=== PATIENT | female | born 1995 | race Hispanic/Latino ===

== ENCOUNTER 2018-07-24 13:22 | Observation (INO) | payer MEDICAID ==
[~2018-07-24] VITALS: Ht 152.4 cm; Wt 78.9 kg
[2018-07-24 14:28] LABS: APPEARANCE,URINE SL CLOUDY (CLEAR); BILIRUBIN,URINE SMALL (NEGATIVE); COLOR,URINE YELLOW (YELLOW); GLUCOSE, URINE (UA) NEGATIVE (NEGATIVE); KETONES,URINE >=80 mg/dL (NEGATIVE); LEUKOCYTE ESTERASE ,URINE SMALL (NEGATIVE); NITRATE,URINE NEGATIVE (NEGATIVE); OCCULT BLOOD,URINE NEGATIVE (NEGATIVE); PROTEIN,URINE TRACE mg/dL (NEGATIVE)
[2018-07-24] MEDS ORDERED: LACTATED RINGERS 1000ML IV SCH (14:30)
[2018-07-24] MEDS ORDERED: LACTATED RINGERS 1000ML 1,000 ML IV SCH (14:30)
[2018-07-24 14:36] LABS: BACTERIA,URINE Few /HPF (None Seen); MUCUS,URINE Few LPF (None Seen); RBC,URINE 0-1 /HPF (0-1); SQUAMOUS EPITHELIAL CELL,UR Moderate /HPF (0-2)
[2018-07-24 14:38] LABS: SPERM,URINE Rare /HPF (None Seen)
[2018-07-24] MEDS ORDERED: PROMETHAZINE HCL 25 MG/ML 1ML AMPULE IM SCH (14:45)
[2018-07-24] MEDS ORDERED: CEFTRIAXONE SODIUM 1 GM IVP SCH (14:45)
[2018-07-24 14:52] LABS: BASOPHILS % (AUTO) 0.2 % (0.0-5.0); EOSINOPHILS % (AUTO) 0.4 % (0.0-8.0); HEMATOCRIT 33.8 % (36-48); LYMPHOCYTES % (AUTO) 8.2 % (21.0-51.0); MEAN CORPUSCULAR HGB CONC 34.1 g/dL (32.0-36.0); MEAN CORPUSCULAR VOLUME 87.8 fL (79-99); MONOCYTES % (AUTO) 5.6 % (3.0-13.0); NEUTROPHILS % (AUTO) 85.6 % (40.0-77.0); PLATELET COUNT (AUTO) 153 K/uL (130-400); RED BLOOD CELL COUNT(AUTO) 3.85 MIL/uL (4.00-5.50); RED CELL DISTRIBUTION WIDTH 15.7 % (11.0-15.5); WHITE BLOOD COUNT (AUTO) 10.4 K/uL (4.8-10.8)
[2018-07-24] MEDS ORDERED: CEFTRIAXONE SODIUM 1 GM ONE (14:59)
[2018-07-24 15:08] LABS: PLATELET MORPHOLOGY LARGE PLTS PRESENT
[2018-07-24] MEDS ORDERED: TERBUTALINE SULFATE VIAL 1MG/ML SQ PRN (16:00)
[2018-07-24] MEDS ORDERED: TERBUTALINE SULFATE VIAL 1MG/ML SQ ONE (16:04)
[2018-07-24] MEDS ORDERED: LACTATED RINGERS 1000ML 1,000 ML IV PRN (17:21)
[2018-07-24] MEDS ORDERED: CALCIUM GLUCONATE 1 GM/10 ML VIAL IV PRN (17:30)
[2018-07-24] MEDS ORDERED: MAGNESIUM 4GM PREMIX 100ML 100 ML IV SCH (17:30)
[2018-07-24] MEDS ORDERED: MAGNESIUM SULFATE 1,000 ML IV SCH (17:30)
[2018-07-24] MEDS ORDERED: PHARMACY COMMUNICATION MISC SCH (17:30)
[2018-07-24] MEDS ORDERED: AMPICILLIN 2GM+NS 100ML 100 ML IV SCH (17:30)
[2018-07-24] MEDS ORDERED: MAGNESIUM 4GM PREMIX 100ML 100 ML IV ONE (17:36)
[2018-07-24] MEDS ORDERED: AMPICILLIN 2GM+NS 100ML 100 ML IV ONE (18:04)
[2018-07-24] MEDS ORDERED: CELESTONE SOLUSPAN 6 MG/ML 5ML VIAL ONE (18:04)
[2018-07-24] MEDS ORDERED: MAGNESIUM SULFATE 1,000 ML IV ONE (18:05)
[2018-07-24] MEDS ORDERED: CELESTONE SOLUSPAN 6 MG/ML 5ML VIAL IM SCH (18:15)
[2018-07-24] MEDS: AMPICILLIN 1GM+NS 50ML 50 ML IV SCH (21:53)
[2018-07-25] MEDS: AMPICILLIN 1GM+NS 50ML 50 ML IV SCH ×6 (02:58→21:52)
[2018-07-26] MEDS: AMPICILLIN 1GM+NS 50ML 50 ML IV SCH ×2 (01:58→05:55)
[2018-07-26 07:21] LABS: HEPATITIS Bs ANTIGEN SCREEN P Negative (Negative)
== END 2018-07-26 11:11 | disposition home or self-care (01) ==
LOC: EDH 13:22 → LDH 13:36
PROVIDERS: ADMIT Obstetrics & Gynecology; ATTEND Obstetrics & Gynecology
DX: O21.2 Late vomiting of pregnancy (principal); O26.893 Other specified pregnancy related conditions, third trimester; R10.9 Unspecified abdominal pain; Z3A.35 35 weeks gestation of pregnancy
CPT/HCPCS: 36415; 81001; 85025; 86592; 86850; 86900; 86901; 87340; 96365; 96366 ×3; 96368; 96372 ×2; 99284; A4314; A4600; G0378 ×9; J0290 ×10; J0696; J0702; J2550; J3105; J3475 ×3; J7120

== ENCOUNTER 2022-12-20 12:37 | Observation (INO) | payer MEDICAID ==
[~2022-12-20] VITALS: Ht 157.5 cm; Wt 78.9 kg
[~2022-12-20 12:37] MED LIST: FERR-82 PO; PREN1TAB80 PO
[2022-12-20] MEDS ORDERED: NALOXONE HCL 0.4 MG/1 ML ML IV PRN (15:30)
[2022-12-20] MEDS ORDERED: EPHEDRINE SULFATE 50 MG/ML AMPULE IVP PRN (15:30)
[2022-12-20] MEDS ORDERED: LACTATED RINGERS 500 ML 500 ML IV PRN (15:30)
[2022-12-20] MEDS ORDERED: ROPIVACAINE 0.2% 100ML VIAL 100 ML EP SCH (15:30)
[2022-12-20 15:59] LABS: HEMATOCRIT 30.4 % (36-48); MEAN CORPUSCULAR HEMOGLOBIN 29.5 pg (27.0-33.0); MEAN CORPUSCULAR HGB CONC 33.6 g/dL (32.0-36.0); MEAN CORPUSCULAR VOLUME 87.9 fL (79-99); RED BLOOD CELL COUNT(AUTO) 3.46 MIL/uL (4.00-5.50); RED CELL DISTRIBUTION WIDTH 14.4 % (11.0-15.5); WHITE BLOOD COUNT (AUTO) 11.6 K/uL (4.8-10.8)
[2022-12-20] MEDS: LACTATED RINGERS 1000ML 1,000 ML IV PRN (16:03)
[2022-12-21] MEDS: LACTATED RINGERS 1000ML 1,000 ML IV PRN (02:17)
[2022-12-21] MEDS ORDERED: OXYTOCIN-LR 30 UNITS/500ML 500 ML IV SCH (05:00)
[2022-12-21 14:45] LABS: RAPID PLASMA REAGIN NONREACTIVE (NONREACTIVE)
[2022-12-22 08:17] LABS: HEPATITIS Bs ANTIGEN SCREEN P Negative (Negative)
== END 2022-12-21 10:10 | disposition home or self-care (01) ==
LOC: OBSVTOIN 12:37 → INTOOBSV 12:37 → LDH 12:37
PROVIDERS: ADMIT Obstetrics & Gynecology; ATTEND Obstetrics & Gynecology
DX: O75.9 Complication of labor and delivery, unspecified (principal); Z3A.37 37 weeks gestation of pregnancy
CPT/HCPCS: 96361 ×2; 85027; 86592; 86850; 86900; 86901; 87340; 86701; 87390; 36415; 96365; 96366; G0378 ×21; G0379; J7120 ×2

== ENCOUNTER 2022-12-28 20:12 | Inpatient (IN) | payer MEDICAID ==
[~2022-12-28] VITALS: Ht 154.9 cm; Wt 78.9 kg
[2022-12-28] MEDS ORDERED: ROPIVACAINE 0.2% 100ML VIAL 100 ML EP SCH (21:00)
[2022-12-28] MEDS ORDERED: LACTATED RINGERS 500 ML 500 ML IV PRN (21:00)
[2022-12-28] MEDS ORDERED: PROMETHAZINE HCL 25 MG/ML 1ML AMPULE IM PRN (21:00)
[2022-12-28] MEDS ORDERED: LACTATED RINGERS 1000ML 1,000 ML IV PRN (21:00)
[2022-12-28] MEDS ORDERED: EPHEDRINE SULFATE 50 MG/ML AMPULE IVP PRN (21:00)
[2022-12-28] MEDS ORDERED: NALOXONE HCL 0.4 MG/1 ML ML IV PRN (21:00)
[2022-12-28] MEDS ORDERED: MEPERIDINE-PF 50 MG/ML SYG IVP PRN (21:00)
[2022-12-28] MEDS ORDERED: OXYTOCIN-LR 30 UNITS/500ML 500 ML IV SCH (21:00)
[2022-12-28 21:38] LABS: HEMATOCRIT 29.3 % (36-48); MEAN CORPUSCULAR HEMOGLOBIN 29.5 pg (27.0-33.0); MEAN CORPUSCULAR HGB CONC 33.4 g/dL (32.0-36.0); MEAN CORPUSCULAR VOLUME 88.3 fL (79-99); RED BLOOD CELL COUNT(AUTO) 3.32 MIL/uL (4.00-5.50); RED CELL DISTRIBUTION WIDTH 14.3 % (11.0-15.5); WHITE BLOOD COUNT (AUTO) 8.7 K/uL (4.8-10.8)
[2022-12-28 22:37] LABS: HIV 1&2 ANTIBODY Non-Reactive (Negative); HIV-1 p24 Antigen Non-Reactive (Negative)
[2022-12-28 23:08] LABS: APPEARANCE,URINE CLEAR (CLEAR); BILIRUBIN,URINE NEGATIVE (NEGATIVE); COLOR,URINE LIGHT-YELLOW (YELLOW); GLUCOSE, URINE (UA) NEGATIVE (NEGATIVE); KETONES,URINE NEGATIVE (NEGATIVE); LEUKOCYTE ESTERASE ,URINE 25 Leu/uL (NEGATIVE); NITRATE,URINE NEGATIVE (NEGATIVE); OCCULT BLOOD,URINE NEGATIVE (NEGATIVE); PROTEIN,URINE NEGATIVE (NEGATIVE); UROBILINOGEN,URINE 0.2 mg/dL (0.2-1.0)
[2022-12-28 23:16] LABS: ADD UA MICROSCOPIC YES
[2022-12-28 23:18] LABS: MUCUS,URINE RARE LPF (None Seen); RBC,URINE 0-1 /HPF (0-1); SQUAMOUS EPITHELIAL CELL,UR MOD /HPF (0-2)
[2022-12-28 23:59] VITALS: BP 103/57; PULSE 92; RESP 16
[2022-12-29] MEDS ORDERED: OXYTOCIN-LR 30 UNITS/500ML 500 ML IV SCH (05:00)
[2022-12-29 05:17] VITALS: BP 119/78; PULSE 99; RESP 16
[2022-12-29 11:00] LABS: RAPID PLASMA REAGIN NONREACTIVE (NONREACTIVE)
[2022-12-29] MEDS ORDERED: LIDOCAINE HCL-MPF 2% 10ML AMP IJ ONE (14:05)
[2022-12-29] MEDS ORDERED: FENTANYL CITRATE PF 50 MCG/1 ML 2ML VIAL ONE (14:05)
[2022-12-29] MEDS ORDERED: LANOLIN 30GM OINTMENT TP PRN (17:00)
[2022-12-29] MEDS ORDERED: BENZOCAINE/LANOLIN/ALOE VERA 60 ML AEROSOL TP PRN (17:00)
[2022-12-29] MEDS ORDERED: MEASLES/MUMPS/RUBELLA VACCINE, LIVE 0.5 ML/VIAL SQ PRN (17:00)
[2022-12-29] MEDS ORDERED: ACETAMINOPHEN WITH CODEINE 1 TAB TAB PO PRN (17:00)
[2022-12-29] MEDS ORDERED: ACETAMINOPHEN 325 MG TAB PO PRN (17:00)
[2022-12-29] MEDS ORDERED: WITCH HAZEL 1 PAD TP PRN (17:00)
[2022-12-29] MEDS ORDERED: DIPH,PERTUSS(ACELL),TET VAC/PF 0.5 ML VIAL IM PRN (17:00)
[2022-12-29 18:28] VITALS: BP 122/75; PULSE 89; RESP 16
[2022-12-29 19:10] VITALS: BP 126/75; PULSE 81; RESP 18
[2022-12-29] MEDS: DOCUSATE SODIUM 100 MG CAP PO SCH (21:26)
[2022-12-29] MEDS: IBUPROFEN 600 MG TABLET PO PRN (22:28)
[2022-12-29 23:26] VITALS: BP 125/79; PULSE 85; RESP 18
[2022-12-30 04:57] VITALS: BP 117/69; PULSE 79; RESP 18
[2022-12-30 06:50] LABS: HEMATOCRIT 27.8 % (36-48); MEAN CORPUSCULAR HGB CONC 33.1 g/dL (32.0-36.0); MEAN CORPUSCULAR VOLUME 87.7 fL (79-99); RED BLOOD CELL COUNT(AUTO) 3.17 MIL/uL (4.00-5.50); RED CELL DISTRIBUTION WIDTH 14.4 % (11.0-15.5); WHITE BLOOD COUNT (AUTO) 14.7 K/uL (4.8-10.8)
[2022-12-30 07:23] VITALS: BP 107/61; PULSE 80; RESP 18
[2022-12-30] MEDS: IBUPROFEN 600 MG TABLET PO PRN ×2 (08:29→14:45)
[2022-12-30] MEDS: DOCUSATE SODIUM 100 MG CAP PO SCH (08:29)
[2022-12-30 11:29] VITALS: BP 120/69; PULSE 84; RESP 18
[2022-12-30 15:55] VITALS: BP 111/66; PULSE 88; RESP 20
== END 2022-12-30 16:50 | disposition home or self-care (01) | DRG 560 ==
LOC: LDH 20:12 → WSH 12-29 18:11
PROVIDERS: ADMIT Obstetrics & Gynecology; ATTEND Obstetrics & Gynecology
PROC: 10E0XZZ Delivery of Products of Conception, External Approach (ICD-10-PCS; principal; 2022-12-29)
PROC: 0UQMXZZ Repair Vulva, External Approach (ICD-10-PCS; 2022-12-29)
PROC: 3E0R3BZ Introduction of Anesthetic Agent into Spinal Canal, Percutaneous Approach (ICD-10-PCS; 2022-12-29)
PROC: 00HU33Z Insertion of Infusion Device into Spinal Canal, Percutaneous Approach (ICD-10-PCS; 2022-12-29)
DX: O71.82 Other specified trauma to perineum and vulva (principal); Z37.0 Single live birth; Z3A.39 39 weeks gestation of pregnancy
CPT/HCPCS: 36415; 81001; 85027; 86592; 86701; 86850; 86900; 86901; 87340; 87390; A4314; G0378; J2795; J3010; J3490; J7120